=== PATIENT | female | born 1980 | race Caucasian/White ===

== ENCOUNTER 2017-02-06 21:24 | Observation (INO) | payer OTHER ==
[~2017-02-06] VITALS: Ht 162.6 cm; Wt 61.4 kg
[2017-02-06] MEDS ORDERED: TYLE325T5 PO (21:36)
[2017-02-06] MEDS ORDERED: NS 1,000 ML IV ONE (22:45)
[2017-02-06] MEDS ORDERED: ONDANSETRON 4MG/2ML VIAL (J2405) IV ONE (22:45)
[2017-02-06 22:54] LABS: MEAN CORPUSCULAR HEMOGLOBIN 29.9 pg (27.0-33.0); MEAN CORPUSCULAR HGB CONC 34.2 g/dl (32.0-36.5); MEAN CORPUSCULAR VOLUME 87.4 fl (80.0-96.0); PLATELET COUNT, AUTOMATED 326 10^3/uL (150-450); RED CELL DISTRIBUTION WIDTH 12.8 % (11.5-14.5)
[2017-02-06 22:57] LABS: ADD MANUAL DIFFER YES; DIFF SLIDE NUMBER 198; WHITE BLOOD COUNT 11.8 10^3/uL (4.0-10.0)
[2017-02-06 23:19] LABS: BANDS 2 % (< 11); EOSINOPHILS 1 % (0-5)
[2017-02-06 23:35] LABS: ALBUMIN 3.4 GM/DL (3.2-5.2); ALBUMIN/GLOBULIN RATIO 0.85 (1.00-1.93); ALKALINE PHOSPHATASE 346 U/L (45-117); ALT/SGPT 561 U/L (12-78); ANION GAP 8 MEQ/L (8-16); AST/SGOT 330 U/L (15-37); BILIRUBIN,DIRECT 2.3 MG/DL (0.0-0.2); BILIRUBIN,TOTAL 2.6 MG/DL (0.2-1.0); BLOOD UREA NITROGEN 6 MG/DL (7-18); CALCIUM LEVEL 8.5 MG/DL (8.5-10.1); CARBON DIOXIDE LEVEL 25 MEQ/L (21-32); CHLORIDE LEVEL 102 MEQ/L (98-107); CREATININE FOR GFR 0.73 MG/DL (0.55-1.02); GLOMERULAR FILTRATION RATE > 60.0 (>60); GLUCOSE, FASTING 96 MG/DL (70-105); HCG, SERUM QUANTITATIVE < 1.0 MIU/ML; POTASSIUM SERUM 3.8 MEQ/L (3.5-5.1); SODIUM LEVEL 135 MEQ/L (136-145); TOTAL PROTEIN 7.4 GM/DL (6.4-8.2)
[2017-02-06] MEDS ORDERED: ISOVUE-370 76% 100ML VIAL (Q9967) As Ordered ONE (23:38)
[2017-02-07] MEDS ORDERED: ONDANSETRON 4MG/2ML VIAL (J2405) IV ONE (00:15)
--- NOTE | 2017-02-07 00:40 | REPUSA ---
CLINICAL HISTORY: Abdominal pain. TECHNIQUE: Multiple axial, sagittal and coronal CT images were obtained through the abdomen and pelvi s after administration of intravenous contrast material. COMMENTS: The liver is mildly enlarged decreased attenuation without mass or defect. There is no intra or extra hepatic biliary ductal dilatation. The spleen is mildly enlarged. The gallbladder is within normal li mits. The pancreas is of normal contour and attenuation characteristics. There is no evidence of adre nal mass. Both kidneys demonstrate prompt and equal nephrograms. The kidneys are normal in size, shape and conf iguration. There is no evidence of renal or ureteral mass. No renal or ureteral calculi are identifie d. There is no hydroureter or hydronephrosis. No evidence for appendicitis. There is no bowel wall thickening. No evidence for small or large young l obstruction. There is no evidence of abdominal ascites or lymphadenopathy. There is no evidence of intrinsic or extrinsic bladder mass. There is small amount of free pelvic flu id without lymphadenopathy. Images of the lung bases show no evidence of pleural or parenchymal mass. There are no pleural effusi ons. The bony structures are free of lytic or blastic lesions. IMPRESSION: Mild hepatomegaly with fatty infiltration. Mild splenomegaly. Moderate large bowel fecal stasis. Fluid-filled small bowels. It is secondary to constipation versus developing enteritis. Small amount of free pelvic fluid in the pelvis. Thickened bladder suspicious for mild cystitis. Thank you for your kind referral of this patient.
[2017-02-07] MEDS ORDERED: fentaNYL 100 MCG/2 ML INJECTION (J3010) IV ONE (01:00)
[2017-02-07] MEDS ORDERED: METOCLOPRAMIDE INJ 10MG/2ML VIAL (J2765) IV ONE (01:00)
[2017-02-07 02:40] LABS: CONTROL LINE MONO INT CTR LINE PRESENT
[2017-02-07] MEDS ORDERED: ONDANSETRON 4MG/2ML VIAL (J2405) IV PRN (03:45)
[2017-02-07] MEDS ORDERED: METOCLOPRAMIDE INJ 10MG/2ML VIAL (J2765) IV PRN (03:45)
[2017-02-07] MEDS: LR 1,000 ML IV SCH ×3 (04:25→20:25)
--- NOTE | 2017-02-07 04:50 | HPEPDOC ---
General Date of Admission 02/07/2017 Other Providers PCP: None Attending Physician: REBECCA KHAN MD Chief Complaint The patient is a 36-year-old female admitted with a reason for visit of intermittent fevers and generalized body aches of 3 weeks' duration Source: Patient, Other (friend) Exam Limitations: No limitations History of Present Illness Ms. Stoner is a 36-year-old female who has been suffering from fevers, generalized body aches, generalized malaise for the past 3 weeks. She states that it started out as a sore throat, then developed into abdominal pain after about one week, which has been accompanied by decreased appetite, decreased oral intake, increased lethargy, sleeping all the time, and constipation. Her friend who accompanies her in the room states that approximately 2 or 3 days ago she noticed some slight yellowing of her eyes around the edges. Just today the patient has begun to develop back pain, and because she has not been improving, she decided to present to emergency department for evaluation. Home Medications Scheduled PRN Acetaminophen (Tylenol) 325 Mg Tab, 650 MG PO for PAIN OR DYSPNEA, (Reported) Allergies Coded Allergies: Hydrocodone (Verified Allergy, Unknown, 02/06/17) Meperidine (Verified Allergy, Unknown, 02/06/17) Morphine (Verified Allergy, Unknown, 02/06/17) Penicillins (Verified Allergy, Unknown, 02/06/17) Sulfa Antibiotics (Verified Allergy, Unknown, 02/06/17) Past Medical History Medical History Essentially no past medical history, and the only medication she takes is a puffer every once in a while when she begins to feel sick with a respiratory infection, however she has never been diagnosed with asthma. 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 Surgical History Tooth abscess Family History Her mother and an aunt has rheumatoid arthritis. Her grandmother has lung cancer , who is also a heavy smoker. Social History * Smoker: Denies (never smoker) Alcohol: Denies Drugs: denies Recent Travel/Sick Contacts: Reports: Recent sick contacts (she states that there are 7 children in the home, essentially all of them having developed some sort of cold / sore throat over the past 1-2 weeks), Denies: Recent travel Pets in the home: Dog(s), Cat(s) Psychosocial History: No pertinent psych hx She lives at home with her friend (who accompanies here here in the ED today). They have 7 kids in the home between the 2 of them. 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 She is quite confident that she has been vaccinated for hepatitis A and B. Occasionally they have found ticks on the dogs, but she does not believe that she has had any recent tick bites. She denies any new sexual partners, she has never used any IV drugs, she has not had any needle sticks in the past. Review of Symptoms Other systems Constitutional: She has been suffering from intermittent fevers, chills, no rigors, no night sweats, no significant weight gain or weight loss. HEENT: She does admit to having headache, scleral icterus, decreased appetite, although she has been trying to make herself eat. Lymphatic: She has not noticed any lumps, bumps, or rashes. Gastrointestinal: She does admit to abdominal pain which is mostly localized to the left upper quadrant pain, which is now extending into her back. She admits to nausea, and dry heaves, but no actual vomiting. She has had constipation, last bowel movement was a few days ago, no diarrhea. Genitourinary: She denies frequency, urgency, dysuria, but she has had very dark urine for the past few days. Endocrine: She denies any polyphagia, polydipsia, polyuria. Psychiatric: She denies any history of psychiatric illness Physical Examination General Exam: Positive: Alert, Cooperative, Mild Distress Eye Exam: Positive: Conjunctiva & lids normal, EOMI, Sclera icteric (mildly icteric around the edges) ENT Exam: Positive: Atraumatic, Mucous membr. moist/pink, Other ENT (she has a Mallampati IV, therefore the tonsils are not visible) Neck Exam: Positive: Supple, Lymphadenopathy (mild submandibular lymphadenopathy), Negative: JVD, thyromegaly Chest Exam: Positive: Clear to auscultation, Normal air movement Heart Exam: Positive: Rate Normal, Regular Rhythm, Normal S1, Normal S2, Negative: Murmurs, Rubs Abdomen Exam: Positive: Normal bowel sounds, Soft, Tenderness (minimally tender in all quadrants), Hepatospenomegaly (liver edge is palpable just below the costal margin, the tip of the spleen is barely palpable) Extremity Exam: Positive: Normal pulses, Negative: Clubbing, Cyanosis, Edema, Tenderness, Swelling Skin Exam: Positive: Nl turgor and temperature, Negative: Rash, Breakdown, Lesion Neuro Exam: Positive: Normal Speech, Cranial Nerves 3-12 NL Psych Exam: Positive: Mental status NL, Mood NL, Oriented x 3 Vital Signs Vital Signs Date Time Temp Pulse Resp B/P (MAP) Pulse Ox O2 Delivery O2 Flow Rate FiO2 02/07/17 01:07 20 02/07/17 00:35 98.7 89 124/73 (90) 100 Room Air Laboratory Data Labs 24H Laboratory Tests 2 02/06/17 22:42: White Blood Count 11.8H, Red Blood Count 4.28, Hemoglobin 12.8, Hematocrit 37.4 , Mean Corpuscular Volume 87.4, Mean Corpuscular Hemoglobin 29.9, Mean Corpuscular Hemoglobin Concent 34.2, Red Cell Distribution Width 12.8, Platelet Count 326, Lymphocytes # (Auto) , Neutrophils 43, Band Neutrophils 2, Lymphocytes (Manual) 38, Monocytes (Manual) 8, Eosinophils (Manual) 1, Myelocytes 2H, Atypical Lymphocytes 6H, Platelet Estimate NORMAL, Red Blood Cell Morphology NORMAL, Anion Gap 8, Glomerular Filtration Rate > 60.0, Lactic Acid Level 0.9, Calcium Level 8.5, Aspartate Amino Transf (AST/SGOT) 330H, Alanine Aminotransferase (ALT/SGPT) 561H, Alkaline Phosphatase 346H, Total Bilirubin 2.6H, Direct Bilirubin 2.3H, Total Protein 7.4, Albumin 3.4, Albumin/ Globulin Ratio 0.85L, Lipase 204, Human Chorionic Gonadotropin, Quant < 1.0, Monoscreen POSITIVEA 02/06/17 23:41: Urine Appearance CLEAR, Urine Color ANYI, Urine pH 5.0, Urine Specific [place] 1.012, Urine Protein NEGATIVE, Urine Glucose (UA) NEGATIVE, Urine Ketones 1+H, Urine Urobilinogen 0.2, Urine Bilirubin NEGATIVE, Urine Leukocyte Esterase NEGATIVE, Urine Blood 2+H, Urine Nitrite NEGATIVE, Urine WBC (Auto) 1, Urine RBC (Auto) 5H, Urine Hyaline Casts (Auto) 1, Urine Bacteria (Auto) NEGATIVE, Urine Squamous Epithelial Cells 1, Urine Mucus (Auto) SMALL, Urine Sperm (Auto) CBC/BMP Laboratory Tests 02/06/17 22:42 Red Blood Count 4.28, Mean Corpuscular Volume 87.4, Mean Corpuscular Hemoglobin 29.9, Mean Corpuscular Hemoglobin Concent 34.2, Red Cell Distribution Width 12.8 , Lymphocytes # (Auto) Microbiology Microbiology 02/06/17 Group A Streptococcus Screen ([facility]), Received Pending 02/06/17 Influenza Virus Type A Antigen - Final, Complete 02/06/17 Influenza Virus Type B Antigen - Final, Complete 02/06/17 Urine Culture, Received Pending Problems (1) Mononucleosis Status: Acute (2) Ileus Status: Acute Problem Text: possible (3) Elevated liver enzymes Status: Acute (4) Leukocytosis Status: Acute (5) Constipation Status: Acute Plan / VTE VTE Prophylaxis Ordered?: Yes (Lovenox) Plan Plan Monospot test was positive in the emergency department, while this will not change her current treatment, tests for HIV, CMV, EBV, and hepatitis A, B, and C have all been ordered to test for any coinfection. As the patient is unable to tolerate anything by mouth at this time, we will keep her for observation. She was started on lactated Ringer's for supportive care and fluid resuscitation. Senokot for constipation. Toradol for pain relief. Zofran and Reglan have been ordered for nausea. We will start her on a clear liquids diet at this time, but she can advance as tolerated. GME ATTESTATION GME ATTESTATION My preceptor for this patient encounter was physically present in the building during the encounter and was fully available. As needed, all aspects of the patient interview, examination, medical decision making process, and medical care plan development were reviewed and approved by the preceptor. Preceptor is aware and concurs with the plan as stated in the body of this note and will attest to such by his/her cosignature. ATTENDING NOTE I have both independently examined this patient as well as reviewed the H&P. I have discussed in detail with the resident the findings and plan of treatment as documented in the residents note. I will continue to follow the patient and offer further guidance to the patients care as necessary during this hospital stay. ТАТЬЯНА WASHINGTON DO Feb 07, 2017 04:49 REBECCA KHAN MD Feb 07, 2017 18:35
[2017-02-07 04:51] LABS: CONTROL LINE MONO RF C INT CTR LINE PRESENT
[2017-02-07] MEDS: KETOROLAC 30 MG/ML VIAL (J1885) IV PRN ×3 (04:52→23:54)
[2017-02-07 06:29] VITALS: BP 116/63
[2017-02-07 07:29] LABS: MEAN CORPUSCULAR HEMOGLOBIN 29.6 pg (27.0-33.0); MEAN CORPUSCULAR HGB CONC 33.3 g/dl (32.0-36.5); MEAN CORPUSCULAR VOLUME 88.9 fl (80.0-96.0); PLATELET COUNT, AUTOMATED 297 10^3/uL (150-450); RED CELL DISTRIBUTION WIDTH 12.9 % (11.5-14.5); WHITE BLOOD COUNT 9.4 10^3/uL (4.0-10.0)
[2017-02-07 07:44] LABS: ADD MANUAL DIFFER YES; DIFF SLIDE NUMBER 105
[2017-02-07 07:51] LABS: ALBUMIN 2.8 GM/DL (3.2-5.2); ALKALINE PHOSPHATASE 269 U/L (45-117); ALT/SGPT 434 U/L (12-78); ANION GAP 7 MEQ/L (8-16); AST/SGOT 249 U/L (15-37); BILIRUBIN,TOTAL 1.7 MG/DL (0.2-1.0); BLOOD UREA NITROGEN 6 MG/DL (7-18); CALCIUM LEVEL 8.1 MG/DL (8.5-10.1); CARBON DIOXIDE LEVEL 26 MEQ/L (21-32); CHLORIDE LEVEL 106 MEQ/L (98-107); CREATININE FOR GFR 0.59 MG/DL (0.55-1.02); GLOMERULAR FILTRATION RATE > 60.0 (>60); GLUCOSE, FASTING 82 MG/DL (70-105); MAGNESIUM LEVEL 2.2 MG/DL (1.8-2.4); POTASSIUM SERUM 3.8 MEQ/L (3.5-5.1); SODIUM LEVEL 139 MEQ/L (136-145); TOTAL PROTEIN 6.3 GM/DL (6.4-8.2)
--- NOTE | 2017-02-07 08:23 | REP ---
Abdominal right upper quadrant ultrasound: There is no cholelithiasis, gallbladder wall thickening or pericholecystic fluid. There is no intrahepatic or extrahepatic biliary duct dilatation, the common duct measures 3.8 mm in diameter. The hepatic parenchyma is homogeneous and unremarkable. The visualized portion of the pancreatic head is unremarkable. The body and tail are obscured by bowel gas. There is no right renal calculus, hydronephrosis, mass or cyst. The right kidney is normal size measuring 11.6 cm craniocaudad length. Impression: Essentially negative abdominal right upper quadrant ultrasound. Signed by Chava Guardado MD 02/07/2017 08:14 A
[2017-02-07 08:58] LABS: BANDS 1 % (< 11)
[2017-02-07] MEDS: ENOXAPARIN 40 MG/0.4 ML SYRINGE (J1650) SC SCH (10:21)
[2017-02-07] MEDS: SENOKOT S TAB PO SCH ×2 (10:21→20:25)
[2017-02-07] MEDS: MIRALAX *UNIT DOSE* 17GM PACKET PO SCH (10:21)
[2017-02-07 10:37] VITALS: BP_SYST 116; BP_SYST 119; BP_DIAS 63; BP_DIAS 77
[2017-02-07 16:00] VITALS: BP 124/68
[2017-02-07 20:00] VITALS: BP 125/72
[2017-02-07] MEDS ORDERED: IBUPROFEN 600 MG TAB PO ONE (20:15)
[2017-02-08] VITALS: BP 120/68
[2017-02-08] MEDS: LR 1,000 ML IV SCH (04:03)
[2017-02-08 07:22] LABS: MEAN CORPUSCULAR HEMOGLOBIN 30.1 pg (27.0-33.0); MEAN CORPUSCULAR HGB CONC 33.7 g/dl (32.0-36.5); MEAN CORPUSCULAR VOLUME 89.5 fl (80.0-96.0); RED CELL DISTRIBUTION WIDTH 13.3 % (11.5-14.5); WHITE BLOOD COUNT 6.8 10^3/uL (4.0-10.0)
[2017-02-08 07:54] LABS: ALBUMIN 2.6 GM/DL (3.2-5.2); ALBUMIN/GLOBULIN RATIO 0.81 (1.00-1.93); ALKALINE PHOSPHATASE 290 U/L (45-117); ALT/SGPT 407 U/L (12-78); ANION GAP 4 MEQ/L (8-16); AST/SGOT 261 U/L (15-37); BILIRUBIN,TOTAL 1.6 MG/DL (0.2-1.0); BLOOD UREA NITROGEN 3 MG/DL (7-18); CALCIUM LEVEL 7.8 MG/DL (8.5-10.1); CARBON DIOXIDE LEVEL 31 MEQ/L (21-32); CHLORIDE LEVEL 107 MEQ/L (98-107); CREATININE FOR GFR 0.58 MG/DL (0.55-1.02); GLOMERULAR FILTRATION RATE > 60.0 (>60); GLUCOSE, FASTING 87 MG/DL (70-105); POTASSIUM SERUM 3.9 MEQ/L (3.5-5.1); SODIUM LEVEL 142 MEQ/L (136-145); TOTAL PROTEIN 5.8 GM/DL (6.4-8.2)
[2017-02-08 08:00] VITALS: BP 114/73
[2017-02-08] MEDS ORDERED: INFLUENZA QUADRIVALENT PF VACCINE 0.5ML SYRINGE (90686) IM ONE (09:00)
[2017-02-08] MEDS: ENOXAPARIN 40 MG/0.4 ML SYRINGE (J1650) SC SCH (09:22)
[2017-02-08 11:05] LABS: HEPATITIS B SURFACE ANTIBODY POSITIVE (POSITIVE)
[2017-02-08] MEDS: MIRALAX *UNIT DOSE* 17GM PACKET PO SCH (11:48)
[2017-02-08] MEDS: SENOKOT S TAB PO SCH (11:48)
--- NOTE | 2017-02-08 12:00 | REP ---
Complete abdomen ultrasound: There is no cholelithiasis, gallbladder wall thickening or pericholecystic fluid. There is no intrahepatic or extrahepatic biliary duct dilatation. The common biliary duct measures 3.6 mm in diameter. The liver measures 17.5 cm cranial caudad in the midclavicular line compatible with hepatomegaly . The hepatic parenchyma is otherwise homogeneous and unremarkable. The visualized portion of the pancreatic head is unremarkable. The pancreatic body and tail are obscured by bowel gas. The spleen is enlarged measuring 15.1 x 6.2 x 11.8 cm. The splenic parenchyma is homogeneous. The kidneys are normal size. Right kidney measures 11.2 x 5.6 x 3.9 cm. Left kidney measures 11.5 x 5.6 x 6.5 cm. There is no calculus, mass, cyst or hydronephrosis on the right on the left. There is no abdominal aortic aneurysm. There is no ascites. Impression: There is hepato splenomegaly. There are no focal hepatic or splenic masses. The pancreas is only partially visualized. Otherwise, negative complete abdominal ultrasound. Signed by Chava Guardado MD 02/08/2017 11:52 A
[2017-02-08] MEDS ORDERED: ACETAMINOPHEN 325 MG TAB PO PRN (12:30)
[2017-02-08] MEDS ORDERED: diphenhydrAMINE CREAM 30GM TOP PRN (12:30)
[2017-02-08] MEDS ORDERED: PEG1POW PO (13:39)
[2017-02-08] MEDS ORDERED: IBUP-1114 PO (13:39)
--- NOTE | 2017-02-08 17:16 | DSES ---
DATE OF ADMISSION: 02/06/2017 DATE OF DISCHARGE: ATTENDING PHYSICIAN: Dr. Azul Carballo DISCHARGING PHYSICIAN: Dr. Azul Carballo PRIMARY CARE PHYSICIAN: Will be established. REFERRING PHYSICIAN: None. CONSULTING PHYSICIAN: None. CONDITION ON DISCHARGE: Stable. FINAL DIAGNOSIS: Infectious mononucleosis. PROCEDURES: None. HISTORY OF PRESENT ILLNESS: The patient is a 36-year-old female with no significant past medical history who presented to the emergency room with complaints of fevers, generalized body aches and malaise for the past 3 weeks. She notes that initially it started off as a sore throat and then developed into abdominal pain for about 1 week duration. She had a decreased appetite and was increasingly fatigued and sleeping throughout the day. She also noted constipation. The patient came to the emergency room for evaluation. The patient was ultimately found to have infectious mononucleosis and hospitalist team was called for admission. HOSPITAL COURSE: Infectious mononucleosis, presented with fever, malaise and generalized weakness. Physical revealed left upper quadrant tenderness. Lab work initially revealed leukocytosis that was lymphocyte predominant, elevated transaminitis, no lactic acidosis. Serology was also positive for mono screen. Imaging via abdomen and pelvis CT scan was acquired and it showed mild hepatomegaly with fatty infiltration, mild splenomegaly, moderate large bowel fecal stasis, fluid filled small bowels secondary to constipation versus developing enteritis, small amount of free positive fluid in the pelvis, thickening of the bladder suspicious for mild cystitis. The patient was placed on supportive care. She was given IV fluid hydration. She was put on Ketorolac for pain control. The patient had a few episodes of fever during the hospital course, she was given a dose of Tylenol, which controlled her fever. Nausea, possibly secondary to infectious mononucleosis. Has not required any antiemetics since hospital admission. Transaminitis/hyperbilirubinemia/elevated alkaline phosphatase, likely secondary to infectious mononucleosis. Physical revealed left upper quadrant tenderness. No right upper quadrant tenderness. Laboratories were negative for hepatitis panel, positive for infectious mononucleosis. Imaging was acquired. Ultrasound of the abdomen was acquired on two occasions on 02/07 and 02/08/2017. On 02/07, imaging revealed an essentially negative abdominal ultrasound of the right upper quadrant and an ultrasound was also acquired on 02/08/2017 and revealed mild hepatosplenomegaly. There were no focal hepatic or splenic masses. Common bile duct was within normal limits of diameter. The patient's liver enzymes have trended down from her hospital admission and have remained stable throughout this last 2 days. Her bilirubin has also trended downward. Normocytic anemia. Hemoglobin is slightly lower from admission, likely secondary to IV fluid hydration. Ileus, less likely as the patient has had ability to pass flatus and most likely constipation. The patient was started on stool softeners, as well as MiraLAX, and the patient has had several bowel movements. Deep vein thrombosis (DVT) prophylaxis. She has been put on Lovenox. DISCHARGE MEDICATIONS: The patient has been discharged home with: - ibuprofen 400 mg by mouth every 4 hours as needed for moderate pain - polyethylene glycol one packet by mouth daily for as needed for constipation - acetaminophen 650 mg by mouth as needed for pain DISCHARGE INSTRUCTIONS: The patient has been advised to followup with her primary care provider within the next 7 days. She has been advised to remain compliant with her treatment plan and medications. Return to the emergency room if she experiences any problems. The patient has been advised to avoid any contact sports or any strenuous activity that can result in abdominal trauma, which can result in splenic injury. Time spent on discharge was greater than 35 minutes.
[2017-02-09 08:07] LABS: CYTOMEGALOVIRUS IgG ANTIBODY <0.60 U/mL (0.00-0.59)
== END 2017-02-08 17:55 | disposition home or self-care (01) ==
LOC: M ED 21:24 → M ED INP 21:25 → M PED 02-07 06:08
PROVIDERS: ADMIT Hospitalist; ATTEND Internal Medicine
DX: B27.90 Infectious mononucleosis, unspecified without complication (principal); R16.2 Hepatomegaly with splenomegaly, not elsewhere classified; D72.829 Elevated white blood cell count, unspecified; R74.8 Abnormal levels of other serum enzymes; K56.7 Ileus, unspecified; Z79.899 Other long term (current) drug therapy; Z88.0 Allergy status to penicillin; Z88.2 Allergy status to sulfonamides; Z88.5 Allergy status to narcotic agent
CPT/HCPCS: 36415; 74177; 76700; 76705; 80048; 80053; 80076; 81001; 83605; 83690; 83735; 84702; 85025; 85027; 86308; 86644; 86645; 86704; 86705; 86706; 86708; 86709; 86803; 87086; 87340; 87389; 87804; 87880; 96361; 96372; 96374; 96375; 96376; 99284; J1650; J1885; J2405; J2765; J3010; Q9967

== ENCOUNTER → 2020-04-16 | Outpatient (CLI) | payer SELFPAY ==
[~2020-04-16] MED LIST: IBUP-1114 PO; PEG1POW PO; TYLE325T5 PO
== END ==
LOC: M LABSMTC 18:04
PROVIDERS: ATTEND Pediatrics
DX: Z11.59 Encounter for screening for other viral diseases (principal)